=== PATIENT | male | born 1975 | race African-American/Black ===

== ENCOUNTER 2018-10-03 06:00 | Emergency (ER) | payer OTHER ==
[~2018-10-03] VITALS: Ht 190.5 cm; Wt 79.4 kg
[2018-10-03 06:10] VITALS: BP 136/87
== END 2018-10-03 06:40 | disposition home or self-care (01) ==
LOC: ER 06:00
DX: H11.31 Conjunctival hemorrhage, right eye (principal); R51 Headache; W21.01XA Struck by football, initial encounter; Y93.89 Activity, other specified; Y92.89 Other specified places as the place of occurrence of the external cause; Y99.8 Other external cause status